=== PATIENT | male | born 1980 | race Caucasian/White ===

== ENCOUNTER → 2016-07-17 | Outpatient (CLI) | payer OTHER | LOC: MW.CHFP 11:26 | PROVIDERS: ATTEND Nurse Practitioner Family | DX: J02.9 Acute pharyngitis, unspecified (principal) | CPT/HCPCS: 87081; 87880 ==

== ENCOUNTER 2018-11-10 15:27 | Emergency (ER) | payer OTHER ==
[2018-11-10] MEDS ORDERED: Bupivacaine 0.5% 10 ML SDV INJECT ONE (15:46)
[2018-11-10] MEDS ORDERED: Diphtheria,Pertussis(Acell),Tetanus Vaccine 0.5 ML Syringe IM ONE (16:03)
[2018-11-10] MEDS ORDERED: Bacitracin Oint 1 GM U/D Packet ONE (16:31)
[2018-11-10] MEDS ORDERED: Bacitracin Oint 1 GM U/D Packet TOP ONE (16:31)
--- NOTE | 2018-11-10 16:33 | EDM.PDOC ---
ED HPI GENERAL MEDICAL PROBLEM - General Chief Complaint: Laceration Stated Complaint: LEFT INDEX FINGER LACERATION Time Seen by Provider: 11/10/18 15:46 Source of Information: Reports: Patient History Limitations: Reports: No Limitations - History of Present Illness INITIAL COMMENTS - FREE TEXT/NARRATIVE: History of present illness: []Patient cut his left index finger on an angle saw at home. He denies any numbness, tingling or difficulty moving his finger. No other injuries. Review of systems: As per history of present illness and below otherwise all systems reviewed and negative. Past medical history: As per history of present illness and as reviewed below otherwise noncontributory. Surgical history: As per history of present illness and as reviewed below otherwise noncontributory. Social history: No reported history of drug or alcohol abuse. Family history: As per history of present illness and as reviewed below otherwise noncontributory. Physical exam: General: Well developed, well nourished in NAD HEENT: Atraumatic, normocephalic, pupils reactive, negative for conjunctival pallor or scleral icterus, mucous membranes moist, throat clear, neck supple, nontender, trachea midline. Lungs: Clear to auscultation, breath sounds equal bilaterally, chest nontender. Heart: S1S2, regular, negative for clicks, rubs, or JVD. Abdomen: NABS, Soft, nondistended, nontender. Negative for masses or hepatosplenomegaly. Negative for costovertebral tenderness. Pelvis: Stable nontender. Genitourinary: Deferred. Rectal: Deferred. Extremities: 4 cm laceration left index finger, negative for cords or calf pain. Neurovascular unremarkable. Neuro: Awake, alert, oriented. Cranial nerves II through XII unremarkable. Cerebellum unremarkable. Motor and sensory unremarkable throughout. Exam nonfocal. Skin:warm and dry Diagnostics: None Therapeutics: Status updated, wound sutured and cleaned, patient declined x-ray, finger splinted ED Course: Stable Impression: Left index finger laceration Prescriptions: Keflex Plan: Take meds as directed, follow up with your primary care physician, return to ER if symptoms worsen or change. Definitive disposition and diagnosis as appropriate pending reevaluation and review of above. - Related Data Allergies Allergy/AdvReac Type Severity Reaction Status Date / Time No Known Allergies Allergy Verified 11/10/18 15:58 Home Meds: Home Meds cephALEXin [Keflex] 500 mg PO Q8H #21 cap 11/10/18 [Rx] Past Medical History - Infectious Disease History Infectious Disease History: Reports: Chicken Pox - Past Surgical History HEENT Surgical History: Reports: Oral Surgery Social & Family History - Family History Family Medical History: Noncontributory - Tobacco Use Smoking Status *Q: Never Smoker Second Hand Smoke Exposure: No - Caffeine Use Caffeine Use: Reports: Coffee - Recreational Drug Use Recreational Drug Use: No ED ROS GENERAL - Review of Systems Review Of Systems: See Below ED EXAM, SKIN/RASH Exam: See Below (See history of present illness) ED SKIN PROCEDURES - Laceration/Wound Repair Left index finger Appearance: Superficial (4cm) Local Anesthesia - Lidocaine (Xylocaine): 0.5% Plain, 1% Plain Local Anesthesia - Bupivicaine (Marcaine): 0.5% Plain Local Anesthetic Volume: 2cc Skin Prep: Chlorhexidine (Hibiciens) Exploration/Debridement/Repair: Wound Explored Closed with: Sutures Lac/Wound length In cm: 4 Suture Size: 5-0 Repaired with: Vicryl Drain Placement: No Sterile Dressing Applied: Nurse Tetanus Status Addressed: Yes Complications: No - Joint Reduction Pre-Procedure NV Status: Normal Post-Procedure NV Status: Normal Course - Vital Signs Last Recorded V/S: Last Vital Signs Temp 98.7 F 11/10/18 15:58 Pulse 72 11/10/18 15:58 Resp 16 11/10/18 15:58 BP 116/68 11/10/18 15:58 Pulse Ox 96 11/10/18 15:58 - Orders/Labs/Meds Meds: Medications Discontinued Medications Generic Name Dose Route Start Last Admin Trade Name Traci PRN Reason Stop Dose Admin Bacitracin 1 dose 11/10/18 16:31 11/10/18 16:33 Bacitracin Oint 1 Gm TOP 11/10/18 16:32 1 dose ONETIME ONE Administration Bacitracin Confirm 11/10/18 16:31 11/10/18 16:40 Bacitracin Oint 1 Gm Administered 11/10/18 16:32 Not Given Dose 1 dose .ROUTE .STK-MED ONE Bupivacaine HCl 10 ml 11/10/18 15:46 11/10/18 16:12 Sensorcaine-Mpf 0.5% INJECT 11/10/18 15:47 10 ml ONETIME ONE Administration Diphtheria/Tetanus/Acell Pertussis 0.5 ml 11/10/18 16:03 11/10/18 16:12 Adacel IM 11/10/18 16:04 0.5 ml .ONCE ONE Administration Lidocaine HCl 5 ml 11/10/18 15:46 11/10/18 16:12 Xylocaine-Mpf 1% INJECT 11/10/18 15:47 5 ml ONETIME ONE Administration Departure - Departure Time of Disposition: 16:33 Disposition: Home, Self-Care 01 Preliminary Cause of *Q: Other_Special Instruction Condition: Good Clinical Impression: Laceration of left index finger Qualifiers: Encounter type: initial encounter Damage to nail status: without damage Foreign body presence: without foreign body Qualified Code(s): S61.211A - Laceration without foreign body of left index finger without damage to nail, initial encounter - Discharge Information *PRESCRIPTION DRUG MONITORING PROGRAM REVIEWED*: Not Applicable *COPY OF PRESCRIPTION DRUG MONITORING REPORT IN PATIENT OLIVERIO: Not Applicable Prescriptions: cephALEXin [Keflex] 500 mg PO Q8H #21 cap Instructions: Laceration Care, Adult Referrals: PCP,None [Primary Care Provider] - Forms: ED Department Discharge Additional Instructions: The following information is given to patients seen in the emergency department who are being discharged to home. This information is to outline your options for follow-up care. We provide all patients seen in our emergency department with a follow-up referral. The need for follow-up, as well as the timing and circumstances, are variable depending upon the specifics of your emergency department visit. If you don't have a primary care physician on staff, we will provide you with a referral. We always advise you to contact your personal physician following an emergency department visit to inform them of the circumstance of the visit and for follow-up with them and/or the need for any referrals to a consulting specialist. The emergency department will also refer you to a specialist when appropriate. This referral assures that you have the opportunity for follow-up care with a specialist. All of these measure are taken in an effort to provide you with optimal care, which includes your follow-up. Under all circumstances we always encourage you to contact your private physician who remains a resource for coordinating your care. When calling for follow-up care, please make the office aware that this follow-up is from your recent emergency room visit. If for any reason you are refused follow-up, please contact the [facility] Emergency Department at and asked to speak to the emergency department charge nurse. Take meds as directed, follow up with your primary care physician, return to ER if symptoms worsen or change. [facility] [place] [id number] MLP Sign Off - Signature Requirements MLP Sign Off: No
== END 2018-11-10 16:48 | disposition home or self-care (01) ==
LOC: MW.ED 15:27
DX: S61.211A Laceration without foreign body of left index finger without damage to nail, initial encounter (principal); Z98.890 Other specified postprocedural states; Z23 Encounter for immunization; W31.2XXA Contact with powered woodworking and forming machines, initial encounter; Y92.009 Unspecified place in unspecified non-institutional (private) residence as the place of occurrence of the external cause
CPT/HCPCS: 12002; 90471; 90715; 99282; J2001; J3490